=== PATIENT | female | born 1990 | race Asian ===

== ENCOUNTER 2020-01-28 03:08 | Outpatient (CLI) | payer OTHER ==
[~2020-01-28] VITALS: Ht 149.9 cm; Wt 62.7 kg
[2020-01-28 03:22] VITALS: BP 116/64
[2020-01-28 03:41] LABS: MICROSCOPIC INDICATED
[2020-01-28] MEDS ORDERED: PREN1TAB60 PO (03:56)
[2020-01-28] MEDS ORDERED: HYDROcodone/APAP 5/325 TABLET ONE (04:23)
[2020-01-28] MEDS ORDERED: HYDROcodone/APAP 5/325 TABLET PO ONE (04:30)
== END 2020-01-28 04:33 | disposition home or self-care (01) ==
LOC: LDOP 03:08
PROVIDERS: ATTEND Obstetrics & Gynecology
DX: O26.893 Other specified pregnancy related conditions, third trimester (principal); R10.9 Unspecified abdominal pain; Z3A.36 36 weeks gestation of pregnancy
CPT/HCPCS: 59025; 81001; 87086; 99211; G0463

== ENCOUNTER 2020-01-28 09:04 | Inpatient (IN) | payer OTHER ==
[~2020-01-28] VITALS: Ht 149.9 cm; Wt 62.7 kg
[~2020-01-28 09:04] MED LIST: PREN1TAB60 PO
[2020-01-28] MEDS: LACTATED RINGERS 1,000 ML IV SCH ×2 (09:45→14:52)
[2020-01-28] MEDS ORDERED: D5%-LACTATED RINGERS 1,000 ML IV SCH (10:00)
[2020-01-28] MEDS ORDERED: AMPICILLIN 2 GM in SODIUM CHLORIDE 0.9% 100 ML IV SCH (10:00)
[2020-01-28] MEDS ORDERED: NEWBORN KIT ONE (10:18)
[2020-01-28] MEDS ORDERED: CALCIUM CARBONATE 500 MG TAB.CHEW PO PRN (10:30)
[2020-01-28] MEDS ORDERED: FENTANYL PF 100 MCG/2ML IV PRN (10:30)
[2020-01-28] MEDS ORDERED: ONDANSETRON 2MG/ML, 2ML IVPush PRN (10:30)
[2020-01-28] MEDS ORDERED: TERBUTALINE 1 MG/ML, 1ML IVPush PRN (10:30)
[2020-01-28 10:54] LABS: BASOPHILS # (AUTO) 0.09 x10^3/uL (0-0.1); BASOPHILS % (AUTO) 1 % (0-1); EOSINOPHILS # (AUTO) 0.01 x10^3/uL (0-0.4); EOSINOPHILS % (AUTO) 0 % (1-7); LYMPHOCYTES # (AUTO) 0.63 x10^3/uL (1-3.4); LYMPHOCYTES % (AUTO) 5 % (22-44); MD NO; MEAN CORPUSCULAR HGB CONC 33.7 g/dL (32.4-35.8); MEAN CORPUSCULAR VOLUME 101.1 fL (80-100); MEAN PLATELET VOLUME 8.1 fL (7.4-10.4); MONOCYTES # (AUTO) 0.35 x10^3/uL (0.2-0.8); MONOCYTES % (AUTO) 3 % (2-9); NEUTROPHILS # (AUTO) 11.76 x10^3/uL (1.8-6.8); NEUTROPHILS % (AUTO) 92 % (42-75); PLATELET COUNT 182 x10^3/uL (130-400); RED BLOOD COUNT 4.35 x10^6/uL (3.82-5.3); RED CELL DISTRIBUTION WIDTH 14.4 % (9.6-15.2)
[2020-01-28] MEDS ORDERED: AMPICILLIN 2 GM in SODIUM CHLORIDE 0.9% 100 ML IV ONE (11:00)
[2020-01-28] MEDS ORDERED: FENTANYL PF 100 MCG/2ML ONE ×2 (11:15→14:43)
[2020-01-28] MEDS: FENTANYL PF 100 MCG/2ML IVPush PRN ×2 (11:18→14:52)
[2020-01-28] MEDS ORDERED: AMPICILLIN 1 GM in SODIUM CHLORIDE 0.9% 50 ML IVPB SCH (14:30)
[2020-01-28] MEDS ORDERED: LACTATED RINGERS 1,000 ML IV SCH (15:22)
[2020-01-28] MEDS ORDERED: FENTANYL/BUPIV./NS/PF 250 ML EPIDCONT SCH ×2 (15:22→15:29)
[2020-01-28] MEDS ORDERED: LACTATED RINGERS 1,000 ML IVBOLUS PRN (15:30)
[2020-01-28] MEDS ORDERED: NALOXONE 0.4 MG/ML, 1ML IVPush PRN (15:30)
[2020-01-28] MEDS ORDERED: EPHEDRINE 50 MG/ML, 1ML IVPush PRN (15:30)
[2020-01-28] MEDS ORDERED: OXYTOCIN 30U/ 0.9% NaCL 500ML 500 ML ONE ×2 (17:24→18:18)
[2020-01-28] MEDS ORDERED: MISOPROSTOL 200 MCG TABLET ONE (17:25)
[2020-01-28] MEDS ORDERED: OXYTOCIN 30U/ 0.9% NaCL 500ML 500 ML IV SCH (18:07)
[2020-01-28] MEDS ORDERED: OXYTOCIN 30U/ 0.9% NaCL 500ML 500 ML IV ONE (18:21)
[2020-01-28] MEDS ORDERED: METHYLERGONOVINE 0.2 MG/ML IM PRN (18:30)
[2020-01-28] MEDS ORDERED: ONDANSETRON 2MG/ML, 2ML IV PRN (18:30)
[2020-01-28] MEDS ORDERED: SIMETHICONE 80 MG CHEW TAB PO PRN (18:30)
[2020-01-28] MEDS ORDERED: BISACODYL 10 MG SUPP PR PRN (18:30)
[2020-01-28] MEDS ORDERED: TRANEXAMIC ACID 100 MG/ML, 10ML IV ONE (18:30)
[2020-01-28] MEDS ORDERED: OXYcodone IR 5MG TABLET PO PRN (18:30)
[2020-01-28] MEDS ORDERED: OXYcodone/APAP 5/325MG TABLET PO PRN (18:30)
[2020-01-28] MEDS ORDERED: MISOPROSTOL 200 MCG TABLET PR PRN (18:30)
[2020-01-28 20:45] VITALS: BP 91/53
[2020-01-29 00:10] VITALS: BP 98/61
[2020-01-29 01:48] LABS: BASOPHILS # (AUTO) 0.03 x10^3/uL (0-0.1); BASOPHILS % (AUTO) 0 % (0-1); EOSINOPHILS # (AUTO) 0.04 x10^3/uL (0-0.4); EOSINOPHILS % (AUTO) 0 % (1-7); LYMPHOCYTES # (AUTO) 1.02 x10^3/uL (1-3.4); LYMPHOCYTES % (AUTO) 8 % (22-44); MD NO; MEAN CORPUSCULAR HEMOGLOBIN 33.9 pg (27.0-34.8); MEAN CORPUSCULAR HGB CONC 33.7 g/dL (32.4-35.8); MEAN CORPUSCULAR VOLUME 100.7 fL (80-100); MEAN PLATELET VOLUME 8.1 fL (7.4-10.4); MONOCYTES # (AUTO) 0.94 x10^3/uL (0.2-0.8); MONOCYTES % (AUTO) 8 % (2-9); NEUTROPHILS # (AUTO) 10.44 x10^3/uL (1.8-6.8); NEUTROPHILS % (AUTO) 84 % (42-75); PLATELET COUNT 173 x10^3/uL (130-400); RED BLOOD COUNT 3.88 x10^6/uL (3.82-5.3); RED CELL DISTRIBUTION WIDTH 14.5 % (9.6-15.2)
[2020-01-29] MEDS: LACTATED RINGERS 1,000 ML IV SCH (02:00)
[2020-01-29 04:00] VITALS: BP 106/72
[2020-01-29 07:20] VITALS: BP 112/60
[2020-01-29] MEDS: DOCUSATE 100 MG CAPSULE PO PRN (07:39)
[2020-01-29] MEDS: PRENATAL VIT/IRON/FA 1 EACH TABLET PO SCH (07:39)
[2020-01-29] MEDS: IBUPROFEN 600 MG TABLET PO PRN ×2 (07:39→13:38)
[2020-01-29 12:53] VITALS: BP 97/62
[2020-01-29 16:30] VITALS: BP 96/56
[2020-01-29 20:00] VITALS: BP 106/72
[2020-01-30] MEDS: DOCUSATE 100 MG CAPSULE PO PRN (08:43)
[2020-01-30] MEDS: PRENATAL VIT/IRON/FA 1 EACH TABLET PO SCH (08:44)
[2020-01-30] MEDS: IBUPROFEN 600 MG TABLET PO PRN ×2 (08:44→18:00)
[2020-01-30] MEDS ORDERED: DOCU-131 PO (16:28)
[2020-01-30] MEDS ORDERED: IBUP-1222 PO (16:28)
[2020-01-30] MEDS ORDERED: FERR-51 PO (16:29)
== END 2020-01-30 18:24 | disposition home or self-care (01) | DRG 807 ==
LOC: LDOP 09:04 → LDIP 09:51 → 2NW 20:13
PROVIDERS: ADMIT Obstetrics & Gynecology; ATTEND Obstetrics & Gynecology
PROC: 10E0XZZ Delivery of Products of Conception, External Approach (ICD-10-PCS; principal; 2020-01-28)
PROC: 0KQM0ZZ Repair Perineum Muscle, Open Approach (ICD-10-PCS; 2020-01-28)
PROC: 3E0R3BZ Introduction of Anesthetic Agent into Spinal Canal, Percutaneous Approach (ICD-10-PCS; 2020-01-28)
PROC: 00HU33Z Insertion of Infusion Device into Spinal Canal, Percutaneous Approach (ICD-10-PCS; 2020-01-28)
DX: O77.0 Labor and delivery complicated by meconium in amniotic fluid (principal); Z37.0 Single live birth; Z3A.36 36 weeks gestation of pregnancy; D64.9 Anemia, unspecified; O70.1 Second degree perineal laceration during delivery; O90.81 Anemia of the puerperium
CPT/HCPCS: 36415; 82803; 82947; 82962; 85025; 86592; 86850; 86900; G0378; J0290; J3010; J2590; J7120